=== PATIENT | male | born 1940 | race Caucasian/White ===

== ENCOUNTER 2016-12-18 07:56 | Day surgery (SDC) | payer MEDICARE, OTHER, SELFPAY | END 2016-12-18 14:27 | disposition home or self-care (01) | PROVIDERS: Family Provider Family Medicine; Visit Provider Internal Medicine | DX: T82.110A Breakdown (mechanical) of cardiac electrode, initial encounter (principal); Z45.018 Encounter for adjustment and management of other part of cardiac pacemaker; I10 Essential (primary) hypertension; I25.10 Atherosclerotic heart disease of native coronary artery without angina pectoris; I45.9 Conduction disorder, unspecified; I44.2 Atrioventricular block, complete | CPT/HCPCS: 33217; 33235; 71010; 96375; C1898 ==